=== PATIENT | male | born 1935 | race Caucasian/White ===

== ENCOUNTER 2017-05-30 14:20 | Emergency (ER) | payer MEDICARE ==
[~2017-05-30] VITALS: Ht 175.3 cm; Wt 91.0 kg
[~2017-05-30 14:20] MED LIST: ALBU18HF PO; CLOP75TA PO; GEMF600T3 PO; LISI-170 PO; METF500T4 PO
[2017-05-30 14:48] LABS: BASOPHILS # (AUTO) 0.02 x10^3/uL (0-0.1); BASOPHILS % (AUTO) 0 % (0-1); EOSINOPHILS # (AUTO) 0.13 x10^3/uL (0-0.4); EOSINOPHILS % (AUTO) 2 % (1-7); LYMPHOCYTES # (AUTO) 1.93 x10^3/uL (1-3.4); LYMPHOCYTES % (AUTO) 24 % (22-44); MD NO; MEAN CORPUSCULAR HEMOGLOBIN 29.7 pg (27.5-34.5); MEAN CORPUSCULAR HGB CONC 32.8 g/dL (33.2-36.2); MEAN CORPUSCULAR VOLUME 90.6 fL (81-97); MEAN PLATELET VOLUME 7.6 fL (7.4-10.4); MONOCYTES # (AUTO) 0.46 x10^3/uL (0.2-0.8); MONOCYTES % (AUTO) 6 % (2-9); NEUTROPHILS # (AUTO) 5.65 x10^3/uL (1.8-6.8); NEUTROPHILS % (AUTO) 69 % (42-75); PLATELET COUNT 294 x10^3/uL (130-400); RED BLOOD COUNT 4.52 x10^6/uL (4.38-5.82); RED CELL DISTRIBUTION WIDTH 13.7 % (9.4-14.8)
[2017-05-30] MEDS ORDERED: GABA300C10 PO (14:56)
[2017-05-30 15:02] LABS: INTERNATIONAL NORMALIZED RATIO 1.05 (0.93-1.1); PROTHROMBIN TIME 10.8 Seconds (9.6-11.5)
[2017-05-30 15:26] LABS: TROPONIN I < 0.015 ng/mL (0.000-0.045)
[2017-05-30] MEDS ORDERED: DEXAMETHASONE 4 MG/ML, 1ML IVPush ONE (15:30)
[2017-05-30] MEDS ORDERED: SODIUM CHLORIDE 0.9%, 500ML IVBOLUS ONE (15:30)
[2017-05-30] MEDS ORDERED: DEXAMETHASONE 4 MG/ML, 5ML ONE (15:30)
[2017-05-30 15:45] VITALS: BP 124/71
== END 2017-05-30 15:48 | disposition home or self-care (01) ==
LOC: ED 15:40
DX: R22.0 Localized swelling, mass and lump, head (principal); I10 Essential (primary) hypertension
CPT/HCPCS: 36415; 70450; 80047; 84484; 85025; 85610; 85730; 96361; 96374; 99285; J1100; J7040

== ENCOUNTER 2017-07-25 08:24 | Day surgery (SDC) | payer MEDICARE ==
[~2017-07-25] VITALS: Ht 175.3 cm; Wt 81.9 kg
[~2017-07-25 08:24] MED LIST changes: +GABA300C10 PO; +HYDR-3240 PO; +PANT40TA5 PO; +TAMS-11 PO; +VALS80TA3 PO
[2017-07-25 09:47] VITALS: BP 115/74
[2017-07-25] MEDS ORDERED: SODIUM CHLORIDE 0.9% 1,000 ML IV SCH (09:55)
[2017-07-25 09:58] LABS: INTERNATIONAL NORMALIZED RATIO 1.24 (0.93-1.1); PROTHROMBIN TIME 12.7 Seconds (9.6-11.5)
[2017-07-25] MEDS ORDERED: FENTANYL PF 100 MCG/2ML ONE (10:20)
[2017-07-25] MEDS ORDERED: MIDAZOLAM 1 MG/ML, 2ML ONE ×2 (10:21)
== END 2017-07-25 11:55 ==
LOC: OUT 08:24
PROVIDERS: ATTEND Family Medicine
DX: K76.9 Liver disease, unspecified (principal); K86.9 Disease of pancreas, unspecified; Z87.891 Personal history of nicotine dependence
CPT/HCPCS: 36415; 47000; 77012; 82962; 85610; 88307; 99156; J2250; J3010; J7030; 99157

== ENCOUNTER 2017-08-26 14:49 | Inpatient (IN) | payer MEDICARE ==
[~2017-08-26] VITALS: Ht 175.3 cm; Wt 81.6 kg
[~2017-08-26 14:49] MED LIST changes: +APIX5TAB PO; +ENOX80SY4 SQ; +HYDR-882 PO; +LIPA1CAP PO; +MORP15TA3 PO
[2017-08-26] MEDS ORDERED: SODIUM CHLORIDE 0.9% 1,000 ML IV ONE ×2 (15:21→16:23)
[2017-08-26 15:24] LABS: MD YES; MEAN CORPUSCULAR HEMOGLOBIN 27.8 pg (27.5-34.5); MEAN CORPUSCULAR HGB CONC 32.7 g/dL (33.2-36.2); MEAN CORPUSCULAR VOLUME 85.2 fL (81-97); MEAN PLATELET VOLUME 7.9 fL (7.4-10.4); PLATELET COUNT 502 x10^3/uL (130-400); RED BLOOD COUNT 3.33 x10^6/uL (4.38-5.82); RED CELL DISTRIBUTION WIDTH 15.8 % (9.4-14.8)
[2017-08-26] MEDS ORDERED: SODIUM CHLORIDE FLUSH 10ML SYR IVF ONE (15:30)
[2017-08-26] MEDS ORDERED: CEFTRIAXONE PMX 1GM/50ML 50 ML IVPB ONE (15:30)
[2017-08-26] MEDS ORDERED: SODIUM CHLORIDE 0.9% 1,000ML IVBOLUS ONE (15:30)
[2017-08-26 15:37] LABS: ALANINE AMINOTRANSFERASE 12 U/L (12-78); ALBUMIN 2.8 g/dL (3.4-5.0); ANION GAP 14 mmol/L (5-15); CALCIUM 8.4 mg/dL (8.5-10.1); CHLORIDE 105 mmol/L (98-107); CREATININE 1.88 mg/dL (0.7-1.3)
[2017-08-26 15:39] LABS: ALKALINE PHOSPHATASE 162 U/L (45-117); BILIRUBIN,TOTAL 0.6 mg/dL (0.2-1.0); TOTAL PROTEIN 7.6 g/dL (6.4-8.2)
[2017-08-26] MEDS ORDERED: CEFTRIAXONE PMX 1GM/50ML 50 ML ONE (15:45)
[2017-08-26 16:03] LABS: BAND#(MANUAL) 0.32 x10^3/uL; BANDS%(MANUAL) 1 % (0-7); LYMPH#(MANUAL) 0.96 x10^3/uL (1-3.4); LYMPHS% (MANUAL) 3 % (22-44); MONOS#(MANUAL) 0.32 x10^3/uL (0.3-2.7); MONOS% (MANUAL) 1 % (2-9); SEGS% (MANUAL) 95 % (42-75)
[2017-08-26 16:05] LABS: <PLATELET ESTIMATE> INCREASED; <PLT MORPHOLOGY> NORMAL PLT MORPH; ANISOCYTOSIS 1+; POLYCHROMASIA 1+
[2017-08-26] MEDS ORDERED: SODIUM CHLORIDE FLUSH 10ML SYR IVF PRN (16:30)
[2017-08-26 16:33] LABS: MICROSCOPIC INDICATED
[2017-08-26 16:41] LABS: CULTURE INDICATED? NO
[2017-08-26 17:21] VITALS: BP 114/60
[2017-08-26] MEDS ORDERED: PHARMACY MAY ADJ FOR RENAL FX MC SCH (17:30)
[2017-08-26] MEDS ORDERED: DOCUSATE 100 MG CAPSULE PO PRN (17:30)
[2017-08-26] MEDS ORDERED: BISACODYL 10 MG SUPP PR PRN (17:30)
[2017-08-26] MEDS ORDERED: ACETAMINOPHEN 325 MG TABLET PO PRN (17:30)
[2017-08-26] MEDS ORDERED: morphine SULFATE 10 MG/ML, 1ML IV PRN (17:30)
[2017-08-26] MEDS ORDERED: ALBUTEROL SULFATE 2.5 MG/3 ML NPPB PRN (18:00)
[2017-08-26] MEDS: SODIUM CHLORIDE 0.9% 1,000 ML IV SCH (18:43)
[2017-08-26 19:00] VITALS: BP 101/52
[2017-08-26] MEDS: GABAPENTIN 300 MG CAPSULE PO SCH (20:56)
[2017-08-26] MEDS: APIXABAN 5 MG TABLET PO SCH (20:56)
[2017-08-26] MEDS ORDERED: PROTEASE PO SCH (21:00)
[2017-08-26] MEDS ORDERED: LIPASE PO SCH (21:00)
[2017-08-26] MEDS ORDERED: AMYLASE PO SCH (21:00)
[2017-08-26] MEDS ORDERED: [UNRECOGNIZED DRUG - OTHER] PO SCH (21:00)
[2017-08-26 21:35] LABS: RAPID INFLUENZA A Negative (Negative); RAPID INFLUENZA B Negative (Negative)
[2017-08-26] MEDS: HYDROcodone/APAP 5/325 TABLET PO PRN (21:43)
[2017-08-26] MEDS: INSULIN REGULAR 100 UNITS/ML, 3ML VIAL SQ-INSULIN SCH (21:43)
[2017-08-27 00:36] VITALS: BP 89/50
[2017-08-27] MEDS ORDERED: SODIUM CHLORIDE 0.9% 1,000ML IVBOLUS ONE (01:00)
[2017-08-27 01:57] VITALS: BP 105/61
[2017-08-27] MEDS: SODIUM CHLORIDE 0.9% 1,000 ML IV SCH ×3 (02:51→20:36)
[2017-08-27 03:51] VITALS: BP 97/53
[2017-08-27 06:00] LABS: MEAN CORPUSCULAR HEMOGLOBIN 27.5 pg (27.5-34.5); MEAN CORPUSCULAR HGB CONC 31.9 g/dL (33.2-36.2); MEAN CORPUSCULAR VOLUME 86.2 fL (81-97); MEAN PLATELET VOLUME 7.7 fL (7.4-10.4); PLATELET COUNT 438 x10^3/uL (130-400); RED BLOOD COUNT 2.79 x10^6/uL (4.38-5.82); RED CELL DISTRIBUTION WIDTH 15.7 % (9.4-14.8)
[2017-08-27 06:10] LABS: ALBUMIN 2.4 g/dL (3.4-5.0); ANION GAP 10 mmol/L (5-15); CALCIUM 7.8 mg/dL (8.5-10.1); CHLORIDE 113 mmol/L (98-107)
[2017-08-27 06:16] LABS: ALANINE AMINOTRANSFERASE 9 U/L (12-78); ALKALINE PHOSPHATASE 123 U/L (45-117); BILIRUBIN,TOTAL 0.3 mg/dL (0.2-1.0); CREATININE 1.29 mg/dL (0.7-1.3); TOTAL PROTEIN 6.3 g/dL (6.4-8.2)
[2017-08-27 06:20] LABS: BASOPHILS % (AUTO) 0 % (0-1); EOSINOPHILS % (AUTO) 0 % (1-7); LYMPHOCYTES # (AUTO) 1.73 x10^3/uL (1-3.4); LYMPHOCYTES % (AUTO) 6 % (22-44); MD SCAN; MONOCYTES # (AUTO) 0.54 x10^3/uL (0.2-0.8); MONOCYTES % (AUTO) 2 % (2-9); NEUTROPHILS # (AUTO) 28.27 x10^3/uL (1.8-6.8); NEUTROPHILS % (AUTO) 93 % (42-75)
[2017-08-27] MEDS: INSULIN REGULAR 100 UNITS/ML, 3ML VIAL SQ-INSULIN SCH ×4 (07:00→20:52)
[2017-08-27 08:01] VITALS: BP 100/56
[2017-08-27] MEDS: GABAPENTIN 300 MG CAPSULE PO SCH ×3 (10:46→20:49)
[2017-08-27] MEDS: PANTOPROZOLE 40MG TABLET PO SCH (10:48)
[2017-08-27] MEDS: APIXABAN 5 MG TABLET PO SCH ×2 (10:50→20:49)
[2017-08-27 12:35] VITALS: BP 103/53
[2017-08-27 15:44] LABS: CLOSTRIDIUM DIFFICILE ANTIGEN NEGATIVE; CLOSTRIDIUM DIFFICILE TOXIN NEGATIVE (Negative); CRYPTOSPORIDIUM ANTIGEN Negative (Negative)
[2017-08-27 16:06] LABS: OCCULT BLOOD POSITIVE (NEGATIVE)
[2017-08-27 17:14] LABS: STOOL FOR LEUKOCYTES RARE (0-1/HPF) (NEGATIVE)
[2017-08-27] MEDS: HYDROcodone/APAP 5/325 TABLET PO PRN (17:23)
[2017-08-27] MEDS: ONDANSETRON 2MG/ML, 2ML IV PRN (17:23)
[2017-08-27] MEDS: LIPASE HOMEMEDPO SCH (17:29)
[2017-08-27] MEDS: AMYLASE HOMEMEDPO SCH (17:29)
[2017-08-27] MEDS: PROTEASE HOMEMEDPO SCH (17:29)
[2017-08-27 19:51] VITALS: BP 90/51
[2017-08-28] MEDS: ONDANSETRON 2MG/ML, 2ML IV PRN (02:46)
[2017-08-28 03:22] VITALS: BP 96/57
[2017-08-28] MEDS: HYDROcodone/APAP 5/325 TABLET PO PRN ×2 (03:34→08:53)
[2017-08-28] MEDS: SODIUM CHLORIDE 0.9% 1,000 ML IV SCH ×3 (03:34→20:39)
[2017-08-28 06:34] LABS: MEAN CORPUSCULAR HEMOGLOBIN 27.3 pg (27.5-34.5); MEAN CORPUSCULAR VOLUME 85.4 fL (81-97); MEAN PLATELET VOLUME 7.6 fL (7.4-10.4); PLATELET COUNT 427 x10^3/uL (130-400); RED BLOOD COUNT 2.84 x10^6/uL (4.38-5.82); RED CELL DISTRIBUTION WIDTH 15.9 % (9.4-14.8)
[2017-08-28 06:46] LABS: ANION GAP 7 mmol/L (5-15); CALCIUM 7.7 mg/dL (8.5-10.1); CHLORIDE 116 mmol/L (98-107); CREATININE 0.95 mg/dL (0.7-1.3)
[2017-08-28 06:54] LABS: MD YES
[2017-08-28 06:55] LABS: ANISOCYTOSIS 1+; LYMPHS% (MANUAL) 4 % (22-44); METAMYELOCYTES# (MANUAL) 0.28 x10^3/uL (0-0); METAMYELOCYTES% (MANUAL) 1 % (0-1); MONOS% (MANUAL) 4 % (2-9); POLYCHROMASIA 1+; SEG#(MANUAL) 25.03 x10^3/uL (1.8-6.8); SEGS% (MANUAL) 91 % (42-75)
[2017-08-28 06:56] LABS: <PLATELET ESTIMATE> INCREASED; <PLT MORPHOLOGY> NORMAL PLT MORPH
[2017-08-28 07:44] VITALS: BP 102/55
[2017-08-28] MEDS: INSULIN REGULAR 100 UNITS/ML, 3ML VIAL SQ-INSULIN SCH ×4 (08:27→20:42)
[2017-08-28] MEDS: GABAPENTIN 300 MG CAPSULE PO SCH ×3 (08:50→20:39)
[2017-08-28] MEDS: PANTOPROZOLE 40MG TABLET PO SCH (08:50)
[2017-08-28] MEDS: APIXABAN 5 MG TABLET PO SCH ×2 (08:52→20:39)
[2017-08-28] MEDS: LIPASE HOMEMEDPO SCH ×3 (08:53→17:06)
[2017-08-28] MEDS: PROTEASE HOMEMEDPO SCH ×3 (08:53→17:06)
[2017-08-28] MEDS: AMYLASE HOMEMEDPO SCH ×3 (08:53→17:06)
[2017-08-28] MEDS: OXYcodone/APAP 10/325MG TABLET PO PRN ×2 (11:28→17:06)
[2017-08-28 12:55] VITALS: BP 95/56
[2017-08-28 19:18] VITALS: BP 101/58
[2017-08-29 01:50] VITALS: BP 106/63
[2017-08-29] MEDS: SODIUM CHLORIDE 0.9% 1,000 ML IV SCH ×2 (04:12→11:30)
[2017-08-29 07:42] VITALS: BP 102/55
[2017-08-29] MEDS: PROTEASE HOMEMEDPO SCH ×2 (08:55→12:12)
[2017-08-29] MEDS: PANTOPROZOLE 40MG TABLET PO SCH (08:55)
[2017-08-29] MEDS: GABAPENTIN 300 MG CAPSULE PO SCH (08:55)
[2017-08-29] MEDS: APIXABAN 5 MG TABLET PO SCH (08:55)
[2017-08-29] MEDS: LIPASE HOMEMEDPO SCH ×2 (08:55→12:12)
[2017-08-29] MEDS: OXYcodone/APAP 10/325MG TABLET PO PRN ×2 (08:55→14:15)
[2017-08-29] MEDS: AMYLASE HOMEMEDPO SCH ×2 (08:55→12:12)
[2017-08-29] MEDS: INSULIN REGULAR 100 UNITS/ML, 3ML VIAL SQ-INSULIN SCH ×2 (08:59→12:10)
[2017-08-29 13:15] VITALS: BP 91/52
== END 2017-08-29 15:23 | disposition home or self-care (01) | DRG 682 ==
LOC: ED 16:22 → 3NW 16:23 → ED 17:03 → 3NW 17:15 → 4WST 18:08
PROVIDERS: ADMIT Family Medicine; ATTEND Family Medicine
DX: N17.0 Acute kidney failure with tubular necrosis (principal); E43 Unspecified severe protein-calorie malnutrition; C25.9 Malignant neoplasm of pancreas, unspecified; E11.65 Type 2 diabetes mellitus with hyperglycemia; C78.7 Secondary malignant neoplasm of liver and intrahepatic bile duct; I95.9 Hypotension, unspecified; J44.9 Chronic obstructive pulmonary disease, unspecified; D72.829 Elevated white blood cell count, unspecified; K92.1 Melena; K21.9 Gastro-esophageal reflux disease without esophagitis; I10 Essential (primary) hypertension; Z51.5 Encounter for palliative care; R00.1 Bradycardia, unspecified; R68.81 Early satiety; Z66 Do not resuscitate; N40.0 Benign prostatic hyperplasia without lower urinary tract symptoms; Z87.891 Personal history of nicotine dependence; Z85.07 Personal history of malignant neoplasm of pancreas; Z79.84 Long term (current) use of oral hypoglycemic drugs; Z68.26 Body mass index [BMI] 26.0-26.9, adult
CPT/HCPCS: 36415; 70450; 71046; 76705; 80048; 80053; 81001; 82272; 82962; 83605; 83690; 83735; 84145; 85014; 85018; 85025; 87040; 87324; 87328; 87329; 87400; 89055; 93005; 96365; J0696; J1815; J2405; J7030